=== PATIENT | male | born 1950 | race Caucasian/White ===

== ENCOUNTER 2022-02-23 16:16 | Outpatient (CLI) | payer MEDICARE, SELFPAY ==
[2022-02-23 18:09] LABS: Albumin* 4.5 g/dL (3.3-5.0)
[2022-02-23 18:10] LABS: Chloride* 101 mmol/L (96-114); Potassium* 4.2 mmol/L (3.6-5.1); Sodium* 137 mmol/L (135-149)
[2022-02-23 18:12] LABS: Alkaline Phosphatase* 77 U/L (40-150); Aspartate Amino Transferase* 25 U/L (12-35); Bilirubin Total* 0.8 mg/dL (0.1-1.5); Blood Urea Nitrogen* 15 mg/dL (7-30); Carbon Dioxide* 27 mmol/L (20-32); Cholesterol* 158 mg/dL (90-199); Creatinine* 0.6 mg/dL (0.5-1.5); Estimated Glomerular Filt Rate 103 ml/min; Total Protein* 6.9 g/dL (6.0-8.3)
[2022-02-23 18:13] LABS: Alanine Aminotransferase* 19 U/L (4-50); Glucose* 86 mg/dL (60-115); HDL Cholesterol* 55 mg/dL (>=40); LDL Cholesterol Calculated 89 mg/dL (<100); Triglycerides* 72 mg/dL (40-149)
[2022-02-23 18:44] LABS: PSA Screen* 0.66 ng/mL (0.10-4.00)
== END 2022-02-23 16:17 | disposition home or self-care (01) ==
PROVIDERS: PCP Internal Medicine; Visit Provider Internal Medicine
DX: I10 Essential (primary) hypertension; Z12.5 Encounter for screening for malignant neoplasm of prostate; Z13.6 Encounter for screening for cardiovascular disorders
CPT/HCPCS: 80053; 80061; 84153

== ENCOUNTER 2022-03-22 10:31 | Outpatient (CLI) | payer MEDICARE, SELFPAY ==
--- OUTSIDE RECORDS SUMMARY | 2022-03-22 10:33 | XMS_ITS | Clinical Summary ---
:1950 Author Organization [facility] [place] [address] Care Team Providers Name Role Phone Lucius King MD Primary Care Provider Allergies No known active allergies Medications Medication Sig Dispensed Refills Start Date End Date Status ascorbic acid, vitamin Daily 0 Active C, (VITAMIN C) 500 mg tablet lisinopriL (PRINIVIL; Take 10 mg by 0 02/17/2021 Active ZESTRIL) 10 mg tablet mouth once daily. montelukast (SINGULAIR) Take 10 mg by 0 03/23/2021 Active 10 mg tablet mouth at bedtime. Saccharomyces boulardii Daily 0 Active (FLORASTOR) 250 mg capsule sennosides (SENNA) 8.6 Daily as needed 0 Active mg tablet fluticasone (50 mcg per Daily 0 Active actuation) nasal solution (FLONASE) finasteride (PROSCAR) 5 Take 1 Tablet (5 90 Tablet 3 2 Active mg tabletIndications: mg) by mouth Benign prostatic every morning. hyperplasia with nocturia Active Problems Not on file Social History Tobacco Use Types Packs/Day Years Used Date Current Every Day Smoker Cigarettes 0.5 Smokeless Tobacco: Never Used Tobacco Cessation: Counseling Given: No Alcohol Use Standard Drinks/Week Comments Yes 0 (1 standard drink = 0.6 oz pure alcoho l) 2 glassed a night of red wine Alcohol Habits Answer Date Recorded How often do you have a drink containing Not asked alcohol? How many drinks containing alcohol do you Not asked have on a typical day when you are drinking? How often do you have six or more drinks Not asked on one occasion? Comment: 2 glassed a night of red wine 04/07/2021 Sex Assigned at Date Recorded Not on file Obstetrics History Last Filed Vital Signs Vital Sign Reading Time Taken Comments Blood Pressure 136/85 08/25/2021 3:40 PM CLOTH FINISHING RANGE TENDER Pulse 65 08/25/2021 3:40 PM CLOTH FINISHING RANGE TENDER Temperature - - Respiratory Rate 20 08/25/2021 3:40 PM CLOTH FINISHING RANGE TENDER Oxygen Saturation 100% 08/25/2021 3:40 PM CLOTH FINISHING RANGE TENDER Inhaled Oxygen - - Concentration Weight 80.3 kg (177 lb 1.6 08/25/2021 3:40 PM PT weighe d with shoes oz) CLOTH FINISHING RANGE TENDER on. Height - - Body Mass Index - - Plan of Treatment Health Maintenance Due Date Last Done Comments Tdap 1961 Depression screening for age 12+ 1962 BMI (ht and wt on same day) for age 1205/19/1968 18+ Hepatitis C screening for age 18-79 1968 Tetanus booster 1970 Colonoscopy through age 75 1995 Lipids for age 45-75 1995 Zoster (shingles) series for age 50+ 2000 (1 of 2) AAA screening age 55-77 2005 Medicare Wellness for age 65+ 2015 Pneumococcal series for age 65+ (1 - 2015 PCV) COVID-19 vaccine series (4 - Booster 07/05/2021 05/10/2021, 09/11/2020, for Pfizer series) 08/21/2020 Influenza for age 65+ 02/17/2022 Results Not on filefrom Last 3 Months Insurance Payer Benefit Plan / Subscriber ID Effective Dates Phone Addre ss Type Group MEDICARE - PB MEDICARE PB [id number] 2015-Presrhonda ATT N: CLAIMS USE ONLY ONLY t [address] [place] [address] Care Teams Surgical Oncologist Relationship Specialty Start Date End Date Lucius King MD PCP - General Internal Medicine 04/07/211999 [place] [address]
== END 2022-03-22 10:32 | disposition home or self-care (01) ==
PROVIDERS: PCP Internal Medicine; Visit Provider Family Medicine
DX: S61.019A Laceration without foreign body of unspecified thumb without damage to nail, initial encounter (principal)
CPT/HCPCS: 87070; 87186

== ENCOUNTER 2022-04-13 09:14 | Outpatient (RCR) | payer MEDICARE, SELFPAY | END 2022-06-17 14:15 | disposition home or self-care (01) | PROVIDERS: PCP Internal Medicine; Visit Provider Internal Medicine | DX: M62.830 Muscle spasm of back (principal); M62.838 Other muscle spasm; Z51.89 Encounter for other specified aftercare | CPT/HCPCS: 97140; 97163; 97530 ==

== ENCOUNTER 2022-04-22 15:15 | Outpatient (CLI) | payer MEDICARE, SELFPAY ==
--- NOTE | 2022-04-22 15:30 | MR_ITS ---
[facility] [address] [facility] [address] Phone:?[phone] Fax:?[phone] Referring Physician Information: Lucius King M.D. [address] [facility] [address] Phone:?[phone] Fax:?[phone] Patient:Kina Rankin D.O.B:?1950 Sex:?Male Phone:?[phone] [facility] MRN:?[id number] Exam Date:?04/22/2022 ? EXAM: MR THORACIC SPINE WITHOUT CONTRAST CLINICAL INFORMATION: 71-year-old male with left-sided back pain. COMPARISON: None. TECHNICAL INFORMATION: Sagittal T2, sagittal T1, sagittal STIR, axial T2, and axial T1, axial T2*-weighted MR images of the thoracic spine on a 1.5 Nicki magnet. CONTRAST: None. SEDATION: None. INTERPRETATION: Generalized attenuation of the thoracic kyphosis with generalized thoracic dextrocurvature, chronic Scheuermann-type endplate Schmorl's nodes diffusely spanning T6-7 through T11-12, and mild chronic anterior wedging at T8 and T9, with up to 25% height loss at T8 and 15% height loss at T9. Scattered benign intraosseous hemangiomata. STIR hyperintense, T1 hypointense signal abnormality symmetrically involving the pedicles of T12, raising concern for pedicle fractures (series 5, images 5-8 and 14-16). Normal pre and paravertebral soft tissues. 1.8 cm T2 hyperintense left renal lesion favored to represent a hemorrhagic cyst (series 8, image 27), and partially imaged T2 hyperintense left renal cyst measuring at least 1.9 cm (series 8, image 36) Normal thoracic cord signal. T12-L1: Normal disc and facets. T11: Mild disc degeneration, mild dorsal annular bulge, mild left facet degeneration, and dizziness impingement. T10-11: Mild disc degeneration, 1 mm retrolisthesis, and mild diffuse annular bulge without central stenosis. Mild bilateral facet degeneration and mild left foraminal stenosis. T9-10: Moderate disc degeneration, normal dorsal disc contours, normal facets, and no stenosis or impingement. T8-9: Moderate disc degeneration and mild dorsal bulge partially effacing the ventral CSF/mildly flattening the ventral cord, without central stenosis. Normal facets and patent foramina. T7-8: Moderate disc degeneration and mild dorsal annular bulge partially effacing the ventral CSF/mildly flattening the ventral cord, without central stenosis. Normal facets and patent foramina. T6-7 through T4-5: Mild ventral spondylosis, normal dorsal disc contours, normal facets, and no stenosis or impingement. T3-4: Normal dorsal disc contours, mild right facet degeneration, and no stenosis or impingement. T2-3: 1-2 mm AP right paracentral protrusion partially effacing the ventral CSF/mildly flattening the ventral cord, without central stenosis. Normal facets and patent foramina. T1-2: Mild disc degeneration and mild dorsal bulge without central stenosis. Normal facets and patent foramina. C7-T1: Normal disc and facets. CONCLUSION: Multilevel thoracic degenerative changes with specifics as follows: 1. Nonspecific STIR hyperintense signal abnormality symmetrically involving the T12 pedicles. It is conceivable that benign intraosseous hemangiomata could account for this appearance, noting the presence of scattered intraosseous hemangiomata elsewhere. The differential diagnosis includes stress reaction and if there is a clinical reason to suspect a stress related mechanism of injury at this level, limited CT through the area of interest could aid in further evaluating the bony integrity. 2. Chronic T8 and T9 anterior wedging on a background of mid thoracic juvenile discogenic changes. 3. Scattered shallow dorsal protrusions/annular bulging mildly flattening the ventral cord at T2-3, T7-8, and T8-9 without central stenosis, billie cord impingement, or cord signal change. 4. Mild facet degeneration on the right at T3-4, bilaterally at T10-11, and on the left at T11-12. 5. Mild foraminal stenosis on the left at T10-11 without impingement of the exiting thoracic roots at any imaged level. PDB Electronically signed on 04/26/2022 2:28:00 PM by Bob White M.D.
--- OUTSIDE RECORDS SUMMARY | 2022-04-22 15:38 | XMS_ITS | Clinical Summary ---
:1950 Author Organization [facility] [place] [address] Care Team Providers Name Role Phone Lucius [...] Comments Blood Pressure 136/85 08/25/2021 3:40 PM THEATRE PROGRAM DIRECTOR Pulse 65 08/25/2021 3:40 PM THEATRE PROGRAM DIRECTOR Temperature - - Respiratory Rate 20 08/25/2021 3:40 PM THEATRE PROGRAM DIRECTOR Oxygen Saturation 100% 08/25/2021 3:40 PM THEATRE PROGRAM DIRECTOR Inhaled Oxygen - - Concentration Weight 80.3 kg (177 lb 1.6 08/25/2021 3:40 PM PT weighe d with shoes oz) THEATRE PROGRAM DIRECTOR on. Height - - Body Mass Index [...] Type Group MEDICARE - PB MEDICARE PB [id number] 2015-[employer] ATT N: CLAIMS USE ONLY ONLY t [address] [facility] [place] [address] Care Teams Prop Drawer Relationship Specialty Start Date End Date Lucius King MD PCP - General Internal Medicine 04/07/211999 [place] [address]
== END 2022-04-22 15:16 | disposition home or self-care (01) ==
LOC: MRI 15:16
PROVIDERS: PCP Internal Medicine; Visit Provider Internal Medicine
DX: M54.14 Radiculopathy, thoracic region (principal); M51.24 Other intervertebral disc displacement, thoracic region; M48.04 Spinal stenosis, thoracic region
CPT/HCPCS: 72146

== ENCOUNTER 2023-02-27 15:26 | Outpatient (CLI) | payer MEDICARE, SELFPAY | END 2023-02-27 15:27 | disposition home or self-care (01) | LOC: NFLDREF 03-01 00:47 | PROVIDERS: PCP Internal Medicine; Referring Provider Internal Medicine; Visit Provider Internal Medicine | DX: Z00.00 Encounter for general adult medical examination without abnormal findings (principal); I10 Essential (primary) hypertension; Z13.6 Encounter for screening for cardiovascular disorders; Z12.5 Encounter for screening for malignant neoplasm of prostate | CPT/HCPCS: 80053; 80061; 84153 ==

== ENCOUNTER 2023-03-16 07:55 | Outpatient (CLI) | payer MEDICARE, SELFPAY ==
--- NOTE | 2023-03-16 09:27 | W.ANESCHARGE ---
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
--- NOTE | 2023-03-16 11:06 | W.ANESCHARGE ---
Anesthesia Charges Start Date/Time Anesthesia Start Date: 03/16/23 Anesthesia Start Time: : Stop Date/Time Anesthesia Stop Date: 03/16/23 Anesthesia Stop Time: : Summary Extremes of Age - Over 70 or under 1: MDA
== END 2023-03-16 07:56 | disposition home or self-care (01) ==
LOC: OP CLINIC 07:55
PROVIDERS: PCP Internal Medicine; Visit Provider Surgery
DX: Z12.11 Encounter for screening for malignant neoplasm of colon (principal); K63.5 Polyp of colon; K57.30 Diverticulosis of large intestine without perforation or abscess without bleeding; K64.8 Other hemorrhoids
CPT/HCPCS: 00811; 45385; 88305; 99100; J2704

== ENCOUNTER 2023-05-26 13:49 | Outpatient (CLI) | payer MEDICARE, SELFPAY ==
--- NOTE | 2023-05-26 14:00 | CRLHL7_ITS ---
For Patients: As a result of the Century Cures Act, medical imaging exams and procedure reports are released immediately into your electronic medical record. You may view this report before your referring provider. If you have questions, please contact your health care provider. Indication: Chronic sinus disease Technique: Performed without IV contrast Comparison: None available Findings: Frontal sinuses: Clear. Ethmoid sinuses: Clear. Maxillary sinuses: Trace mucosal thickening inferior maxillary sinuses. The maxillary sinus drainage pathways are patent on both sides. Sphenoid sinuses: Clear, including both sphenoethmoidal recesses. Nasal Cavity: Leftward deviation nasal septum. 1.3 cm gabi bullosa right middle turbinate. No TMJ abnormalities identified. The visualized portions of the orbits, intracranial contents and upper soft tissue neck are grossly negative. Impression: 1. Clear sinuses. 2. Leftward curvature nasal septum with right-sided gabi bullosa. Please note that all CT scans at this facility use dose modulation, iterative reconstruction, and/or weight-based dosing when appropriate to reduce radiation dose to as low as reasonably achievable. Dictated by Chuck Echavarria MD @ 05/28/2023 2:29:00 PM (Electronically Signed)
== END 2023-05-26 13:50 | disposition home or self-care (01) ==
LOC: CT 13:49
PROVIDERS: PCP Internal Medicine; Visit Provider Internal Medicine
DX: J32.9 Chronic sinusitis, unspecified (principal); J34.2 Deviated nasal septum
CPT/HCPCS: 70486

== ENCOUNTER 2023-08-15 16:27 | Outpatient (CLI) | payer MEDICARE, SELFPAY | END 2023-08-15 16:28 | disposition home or self-care (01) | PROVIDERS: PCP Internal Medicine; Visit Provider Internal Medicine | DX: G62.9 Polyneuropathy, unspecified (principal) | CPT/HCPCS: 80053; 84443 ==

== ENCOUNTER 2024-01-31 16:00 | Outpatient (RCR) | payer MEDICARE, SELFPAY | END 2024-02-14 16:21 | disposition home or self-care (01) | PROVIDERS: PCP Internal Medicine; Visit Provider Psychiatry & Neurology Neurology | DX: G62.9 Polyneuropathy, unspecified (principal); M79.605 Pain in left leg; M79.604 Pain in right leg; R26.81 Unsteadiness on feet; R29.898 Other symptoms and signs involving the musculoskeletal system; Z51.89 Encounter for other specified aftercare | CPT/HCPCS: 97035; 97110; 97112; 97140; 97161; 97166; X5282 ==

== ENCOUNTER 2024-05-13 07:49 | Day surgery (SDC) | payer MEDICARE, SELFPAY ==
[2024-05-13] VITALS (13 sets, daily range): BP systolic 108–137; BP diastolic 62–91; PULSE 61–76; RESP 16–24; TEMP 36.3–36.6; O2SAT 95–98; BMI 25.6
--- OUTSIDE RECORDS SUMMARY | 2024-05-13 07:51 | XMS_ITS | Clinical Summary ---
Author Organization [facility] Address [place], [place] [address] Care Team Providers Care Br[employer] Instruments Tube Bender Name Role Phone Lucius King MD Primary Care Provider [phone] Allergies No known active allergies Medications Medication Sig Dispensed Refills Start Date End Date Status ascorbic acid, vitamin C, (VITAMIN C) 500 mg tablet Daily Active lisinopriL (PRINIVIL; ZESTRIL) 10 mg tablet Take 10 mg by mouth once daily. 02/17/2021 Active montelukast (SINGULAIR) 10 mg tablet Take 10 mg by mouth at bedtime. 03/23/2021 Active Saccharomyces boulardii (FLORASTOR) 250 mg capsule Daily Active sennosides (SENNA) 8.6 mg tablet Daily as needed Active fluticasone (50 mcg per actuation) nasal solution (FLONASE) Daily Active finasteride (PROSCAR) 5 mg tabletIndications:Mitul ign prostatic hyperplasia with nocturia Take 1 Tablet (5 mg) by mouth every morning. 90 Tablet 09/27/2022 Active methylPREDNISolone (Medrol, Mateusz,) 4 mg tabletIndications:DDD (degenerative disc disease), thoracic,Lumbar radiculopathy Take by mouth as instructed per packaging. 21 Tablet 11/18/2022 Active traMADoL (ULTRAM) 50 mg tabletIndications:DDD (degenerative disc disease), thoracic Take 1 Tablet (50 mg) by mouth 3 times daily if needed for Pain. 18 Tablet 1 11/18/2022 Active Active Problems No known active problems Social History Tobacco Use Types Packs/Day Years Used Date Smoking Tobacco: Every Day Cigarettes Smokeless Tobacco: Never Tobacco Cessation:Ready to Q uit: No; Counseling Given: Yes Alcohol Use Standard Drinks/Week Comments Yes 0 (1 standard drink = 0.6 oz pur e alcohol) 2 glassed a night of red wine Social Connections Answer Date Recorded Frequency of Communication with Friends and Fami ly Not on file 06/29/2022 Alcohol Use Answer Date Recorded How often do you have a drink containing alcohol ? 4 08/25/2021 How many drinks containing a lcohol do you have on a typical day when you are drinking? 0 08/25/2021 How often do you have five or more drinks on one occasion? 0 08/25/2021 Sex and Gender Information Value Date Recorded Sex Assigned at Not on file Gender Identity Not on file Sexual Orientation Not on file Obstetrics History Last Filed Vital Signs Vital Sign Reading Time Taken Comments Blood Pressure 112/66 06/29/2022 2:06 PM TYPING SECRETARY Pulse 77 06/29/2022 2:06 PM TYPING SECRETARY Temperature 36.8 C (98.2 F) 06/29/2022 2:06 PM TYPING SECRETARY Respiratory Rate 20 08/25/2021 3:40 PM TYPING SECRETARY Oxygen Saturation 98% 06/29/2022 2:06 PM TYPING SECRETARY Inhaled Oxygen Concentration - - Weight 80.3 kg (177 lb 1.6 oz) 06/29/2022 2:06 P M TYPING SECRETARY shoes on Height - - Body Mass Index - - Plan of Treatment Health Maintenance Due Date Last Done Comments Pneumococcal series for age 65+ (1 of 2 - PCV) 1956 Tdap 1961 Depression screening for age 12+ 1962 BMI (ht and wt on same day) for age 18+ 1968 Hepatitis C screening for age 18-79 1968 Tetanus booster 1970 Colonoscopy through age 75 1995 Lipids for age 45-75 1995 Zoster (shingles) series for age 50+ (1 of 2) 2000 Medicare Wellness for age 65+ 2015 COVID-19 vaccine series (2023- season) 2024 05/10/2021, 09/11/2020, 08/21/2020 Influenza for age 65+ 02/18/2024 Care Teams Brass Wind Instruments Tube Bender Relationship Specialty Start Date End Date Lucius King MD [address] [place] [address] PCP - General Internal Medicine 04/07/21
--- NOTE | 2024-05-13 09:03 | W.PM.H&PU ---
History & Physical Update History & Physical Update H&P Reviewed and patient assessed: No changes noted
--- NOTE | 2024-05-13 09:09 | P.GSOP_ITS ---
Operative Note Date of procedure: 05/13/24 Pre-op diagnosis: 1. Bright red blood per rectum with enlarged internal hemorrhoids on colonoscopy. 2. Inability to perform rubber-band ligation in clinic. Post-op diagnosis: Same Type of Procedure: 1. Exam under anesthesia. 2. Three quadrant internal hemorrhoidectomy. Indications: 73-year-old male recently underwent a colonoscopy and was found to have enlarged internal hemorrhoids. Patient then presented to clinic with complaints of bright red blood per rectum after each bowel movement. He usually described the blood as bright and sometimes dark and described it as half a cup in the toilet. He denied pain with bowel movements. He admitted to frequently straining with bowel movements and taking MiraLax and prune juice to help him avoid constipation. Patient also had fiber in his diet and drink a lot of water daily. On clinical exam patient was unable to tolerate anoscopy to see enlarged internal hemorrhoids and do rubber band ligation in clinic. Given patient's clinical history and his inability to undergo rubber-band ligation in clinic, exam under anesthesia with internal hemorrhoidectomy was recommended. The procedure was discussed in detail. The risks associated procedure including infection, bleeding, prolonged pain, and the need for additional procedures were all discussed with the patient, and he agreed to proceed. Procedure Description: After discussing the risks and benefits of the procedure, the patient signed informed consent.? The operative site was marked and the patient was brought to the operating room. Spinal anesthesia was administered by anesthesia staff. Patient was then placed prone on the operating table with all pressure points padded. The patient was then sedated by anesthesia.?? The operative site was then prepped and draped in the usual sterile fashion.? A time-out was then pe rformed. I proceeded with exam under anesthesia. Redundant hemorrhoidal skin tags were seen mostly right and left posterior laterally. Anoscope was placed into the anal canal and enlarged internal hemorrhoidal tissue was visualized. The largest tissue was seen posterior midline, right posterior lateral and right inferior lateral. We then proceeded with 3 quadrant internal hemorrhoidectomy. With the anoscope in place, redundant internal hemorrhoidal tissue was excised with handheld LigaSure starting at the ano derm and extending to the dentate line. The excised hemorrhoidal tissue was not sent to pathology. The incision was then closed with a running locking 3-0 Vicryl suture. This was repeated right posterior laterally and right anterior laterally. Pressure was held for hemostasis. Pressure dressing was placed into the anal canal to be removed in the PACU. All counts were correct At the end of the case. The patient was then woken and transported to the recovery area in stable condition. ? The patient tolerated the procedure well. Findings: redundant internal hemorrhoids, largest enlarged internal hemorrhoids in 3 quadrants were removed. Anesthesia: spinal Surgeon: Agustín Soria MD Estimated blood loss (mL): 5 Condition: stable Disposition: same day
--- NOTE | 2024-05-13 10:12 | W.ANESCHARGE ---
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
--- NOTE | 2024-05-13 10:47 | W.ANESCHARGE ---
Anesthesia Charges Start Date/Time Anesthesia Start Date: 05/13/24 Anesthesia Start Time: 09:09 Stop Date/Time Anesthesia Stop Date: 05/13/24 Anesthesia Stop Time: 10:10 Summary Extremes of Age - Over 70 or under 1: MDA
[2024-05-13] MEDS: HYDROCODONE-ACETAMIN 5-325 MG 1 TAB PO (11:45)
--- NOTE | 2024-05-13 12:21 | SUR.PHASEII ---
packing removed at 1040. Minimal bloody drainage noted on pt's underwear.
== END 2024-05-13 12:20 | disposition home or self-care (01) ==
PROVIDERS: PCP Internal Medicine; Visit Provider Surgery
PROC: (CPT 46260; principal; 2024-05-13 09:30)
DX: K64.8 Other hemorrhoids (principal); K62.5 Hemorrhage of anus and rectum
CPT/HCPCS: 46260; 00902; 99100; A9270; J1885; J2250; J2704; J3010

== ENCOUNTER 2024-09-18 15:42 | Outpatient (CLI) | payer MEDICARE, SELFPAY | END 2024-09-18 15:43 | disposition home or self-care (01) | LOC: NFLDREF 15:43 | PROVIDERS: PCP Internal Medicine; Visit Provider Internal Medicine | DX: G62.9 Polyneuropathy, unspecified (principal) | CPT/HCPCS: 80048 ==

== ENCOUNTER 2025-04-08 08:53 | Outpatient (CLI) | payer MEDICARE, SELFPAY | END 2025-04-08 08:54 | disposition home or self-care (01) | LOC: NFLDREF 04-14 21:13 | PROVIDERS: PCP Internal Medicine; Referring Provider Internal Medicine; Visit Provider Internal Medicine | DX: I10 Essential (primary) hypertension (principal); Z12.5 Encounter for screening for malignant neoplasm of prostate; Z13.6 Encounter for screening for cardiovascular disorders; Z13.9 Encounter for screening, unspecified | CPT/HCPCS: 80053; 80061; G0103 ==